=== PATIENT | female | born 1980 | race Caucasian/White ===

== ENCOUNTER 2020-03-23 13:04 | Emergency (ER) | payer SELFPAY ==
--- NOTE | 2020-03-23 14:40 | RAD ---
PORTABLE CHEST: HISTORY: Cough and shortness of breath. COMPARISON: 09/04/2019 study. FINDINGS: Heart size and mediastinum are within normal limits. The lungs are clear of infiltrates. No bony fi ndings. IMPRESSION: No active intrathoracic disease. POS: OFF
[2020-03-24 02:07] LABS: SARS-CoV-2 MS2 Positive; SARS-CoV-2 N Gene Negative; SARS-CoV-2 S Gene Negative; SARS-CoV-2 by NAA Not Detected (NotDetected); SARS-CoV-2 orf1ab Negative
== END 2020-03-23 17:27 | disposition home or self-care (01) ==
LOC: ERS 13:04
DX: J45.901 Unspecified asthma with (acute) exacerbation (principal); Z20.822 Contact with and (suspected) exposure to COVID-19; F17.210 Nicotine dependence, cigarettes, uncomplicated
CPT/HCPCS: 71045; 87635; U0003